=== PATIENT | male | born 1985 | race African-American/Black ===

== ENCOUNTER 2017-09-24 18:20 | Emergency (ER) | payer MEDICAID ==
[~2017-09-24] VITALS: Ht 188 cm; Wt 104.0 kg
[2017-09-24] MEDS ORDERED: ALBU2.5V13 IH (18:29)
[2017-09-24] MEDS ORDERED: KETOROLAC 60MG/2ML VIAL IM ONE (18:45)
[2017-09-24] MEDS ORDERED: HYDROCODONE/ACETAMINOPHEN 5/325MG TABLET PO ONE (18:45)
[2017-09-24 18:58] VITALS: BP 142/78
== END 2017-09-24 19:49 | disposition home or self-care (01) ==
LOC: ER 18:20
DX: M54.5 Low back pain (principal); J45.909 Unspecified asthma, uncomplicated; F17.210 Nicotine dependence, cigarettes, uncomplicated; F12.10 Cannabis abuse, uncomplicated; V43.52XA Car driver injured in collision with other type car in traffic accident, initial encounter; Y93.89 Activity, other specified; Y92.488 Other paved roadways as the place of occurrence of the external cause
CPT/HCPCS: 96372; 99283; J1885; Z7610; L0172

== ENCOUNTER 2025-07-29 12:49 | Emergency (ER) | payer MEDICAID ==
[~2025-07-29] VITALS: Ht 182.9 cm; Wt 99.0 kg
[~2025-07-29 12:49] MED LIST: ALBU2.5V13 IH
[2025-07-29 12:51] VITALS: O2SAT 99
[2025-07-29] MEDS: ONDANSETRON HCL 4MG/2ML INJ IV ONE (13:39)
[2025-07-29] MEDS: SODIUM CHLORIDE 0.9% 1,000 ML IV ONE (13:39)
[2025-07-29] MEDS: MORPHINE SULFATE 4 MG/ML INJ (FOR IV/IM USE) IV ONE (13:40)
[2025-07-29 13:48] LABS: BASOPHILS % 0.2 % (0.0-2.0); EOSINOPHILS % 0.4 % (0.0-5.0); HEMATOCRIT. 41.9 % (42.0-52.0); HEMOGLOBIN. 14.3 g/dL (14.0-18.0); LYMPHOCYTES % 11.9 % (20.0-50.0); MEAN PLATELET VOLUME 8.7 fl (7.4-10.4); MONOCYTES % 6.6 % (2.0-8.0); NEUTROPHILS % 80.9 % (40.0-76.0); PLATELET 198 x1000/uL (130-400); RED BLOOD CELL COUNT 4.47 mill/uL (4.7-6.1); RED CELL DISTRIBUTION WIDTH 13.4 % (11.6-14.6)
[2025-07-29 14:02] LABS: CREATININE 1.3 mg/dL (0.6-1.3); UREA NITROGEN BLOOD 11 mg/dL (9-23)
[2025-07-29 14:10] LABS: INR 1.0
[2025-07-29] MEDS ORDERED: IBUP-2028 MT (16:12)
[2025-07-29 16:40] VITALS: BP 130/65; PULSE 80; RESP 17; TEMP 37.2; O2SAT 100
== END 2025-07-29 16:53 | disposition home or self-care (01) ==
LOC: ER 12:49
DX: M25.562 Pain in left knee (principal); M25.561 Pain in right knee; M54.9 Dorsalgia, unspecified; R42 Dizziness and giddiness; M54.2 Cervicalgia; R68.84 Jaw pain; J45.909 Unspecified asthma, uncomplicated; Z79.899 Other long term (current) drug therapy; Z86.73 Personal history of transient ischemic attack (TIA), and cerebral infarction without residual deficits; W22.09XA Striking against other stationary object, initial encounter; Y93.89 Activity, other specified; Y92.89 Other specified places as the place of occurrence of the external cause; Y99.8 Other external cause status
CPT/HCPCS: 80048; 85025; 85610; 85730; 36415; 73560; 70450; 70486; 72125; 72128; 72131; 72192; 96361; 96374; 96375; 99285; J2405; J2270; J7030; Z7610 ×2